=== PATIENT | female | born 1955 | race African-American/Black ===

== ENCOUNTER 2022-07-04 21:59 | Inpatient (IN) | payer OTHER ==
[~2022-07-04] VITALS: Ht 172.7 cm; Wt 74.5 kg
[2022-07-04 23:30] LABS: CHLORIDE 118 mEq/L (98-107)
[2022-07-04 23:38] LABS: ETHANOL BLOOD < 10 mg/dL
[2022-07-04] MEDS ORDERED: LACTULOSE 20G/30ML UDC PO ONE (23:45)
[2022-07-04] MEDS ORDERED: SODIUM CHLORIDE 0.9% 1,000 ML IV ONE (23:45)
[2022-07-04 23:58] LABS: MEAN CORPUSCULAR HEMOGLOBIN 17.9 pg (28.0-32.0); MEAN CORPUSCULAR VOLUME 64.3 fL (81.0-99.0); MEAN PLATELET VOLUME 8.2 fl (7.4-10.4); PLATELET 322 x1000/uL (130-400); RED BLOOD CELL COUNT 2.18 mill/uL (4.2-5.4); RED CELL DISTRIBUTION WIDTH 25.8 % (11.6-14.6)
[2022-07-05 00:05] LABS: HEMOGLOBIN. 3.9 g/dL (12.0-16.0)
[2022-07-05] MEDS ORDERED: LACTULOSE 300 ML in WATER FOR IRRIGATION,STERILE 700 ML IR ONE (00:30)
[2022-07-05] MEDS ORDERED: CALCIUM GLUCONATE 100MG/ML 10ML VIAL IV NR (00:45)
[2022-07-05] MEDS ORDERED: GUAIFENESIN 200MG/10ML SUGAR FREE UDC PO PRN (01:00)
[2022-07-05] MEDS ORDERED: HYDROCODONE/ACETAMINOPHEN 5/325MG TABLET PO PRN (01:00)
[2022-07-05] MEDS: SODIUM CHLORIDE 0.45% 1,000 ML IV SCH ×3 (01:00→22:17)
[2022-07-05] MEDS ORDERED: IPRATROPIUM/ALBUTEROL 0.5-3(2.5)MG/3ML NEB NEB PRN (01:00)
[2022-07-05] MEDS ORDERED: ONDANSETRON HCL 4MG/2ML INJ IV PRN (01:00)
[2022-07-05] MEDS ORDERED: MAGNESIUM/ALUMINUM HYDROXIDE/SIMETHICONE 30ML UDC PO PRN (01:00)
[2022-07-05] MEDS ORDERED: CLONIDINE 0.1MG TABLET PO PRN (01:00)
[2022-07-05] MEDS ORDERED: ACETAMINOPHEN 325MG TABLET PO PRN ×2 (01:00)
[2022-07-05] MEDS ORDERED: ENOXAPARIN 40MG/0.4ML SYR SUBCUT SCH (01:00)
[2022-07-05 02:40] LABS: CLARITY URINE CLEAR (CLEAR); COLOR URINE YELLOW (YELLOW); KETONES URINE TRACE (NEGATIVE); LEUKOCYTE ESTERASE URINE 2+ (NEGATIVE); NITRITE URINE POSITIVE (NEGATIVE); OCCULT BLOOD URINE NEGATIVE (NEGATIVE); PH URINE 5.5 (4.5-8.0); PROTEIN URINE TRACE (NEGATIVE); SPECIFIC GRAVITY URINE 1.032 (1.005-1.030)
[2022-07-05 02:54] LABS: *AMPHETAMINES SCREEN URINE NEGATIVE (NEGATIVE); *BARBITURATES SCREEN URINE NEGATIVE (NEGATIVE); *BENZODIAZEPINES SCREEN URINE NEGATIVE (NEGATIVE); *COCAINE SCREEN URINE NEGATIVE (NEGATIVE); CANNABINOID URINE SCREEN NEGATIVE (NEGATIVE); METHADONE URINE SCREEN NEGATIVE (NEGATIVE); OPIATES URINE SCREEN NEGATIVE (NEGATIVE); PHENCYCLIDINE URINE SCREEN NEGATIVE (NEGATIVE)
[2022-07-05] MEDS ORDERED: MIDAZOLAM HCL 2 MG/2 ML VIAL IV PRN (03:00)
[2022-07-05 03:48] LABS: PLATELET ESTIMATE NORMAL
[2022-07-05 04:42] LABS: HEMATOCRIT. 21.8 % (36.0-48.0); MEAN CORPUSCULAR HEMOGLOBIN 21.6 pg (28.0-32.0); MEAN CORPUSCULAR VOLUME 76.4 fL (81.0-99.0); MEAN PLATELET VOLUME 8.5 fl (7.4-10.4); PLATELET 264 x1000/uL (130-400); RED BLOOD CELL COUNT 2.85 mill/uL (4.2-5.4); RED CELL DISTRIBUTION WIDTH 30.5 % (11.6-14.6)
[2022-07-05 04:51] LABS: CHLORIDE 123 mEq/L (98-107)
[2022-07-05 04:58] LABS: PHOSPHORUS 4.6 mg/dL (2.5-4.9)
[2022-07-05 05:05] LABS: HEMOGLOBIN. 6.2 g/dL (12.0-16.0)
[2022-07-05 05:22] LABS: NUCLEATED RED BLOOD CELLS 3 /100 WBC
[2022-07-05 05:23] LABS: PLATELET ESTIMATE NORMAL
[2022-07-05] MEDS ORDERED: IOHEXOL-350 100 ML BOTTLE ONE (07:16)
[2022-07-05] MEDS: THIAMINE HCL 100MG TABLET PO SCH (09:30)
[2022-07-05 15:06] LABS: FOLIC ACID (FOLATE) SERUM 6.3 ng/mL (>5.38)
[2022-07-05] MEDS: IRON SUCROSE COMPLEX 100 MG/5 ML ML IV SCH (15:51)
[2022-07-05] MEDS: AMLODIPINE 5MG TABLET PO SCH (15:55)
[2022-07-05] MEDS ORDERED: FOLIC ACID 1 MG, THIAMINE HCL 100 MG, MVI, ADULT NO.1 10 ML in DEXTROSE 5% WATER 1,000 ML IV ONE ×4 (17:00)
[2022-07-05] MEDS ORDERED: CEFTRIAXONE 1 G PREMIX 50 ML IV SCH (17:45)
[2022-07-05 21:15] VITALS: BP 156/85
[2022-07-05] MEDS ORDERED: TRAZ-252 PO (23:36)
[2022-07-05] MEDS ORDERED: LISI20TA31 PO (23:36)
[2022-07-05] MEDS ORDERED: OMEP20CA14 PO (23:36)
[2022-07-05] MEDS ORDERED: ATOR10TA69 PO (23:36)
[2022-07-06] VITALS (11 sets, daily range): BP systolic 114–144; BP diastolic 62–80
[2022-07-06] MEDS: SODIUM CHLORIDE 0.45% 1,000 ML IV SCH ×2 (07:00→17:00)
[2022-07-06 07:25] LABS: HEMATOCRIT 23.6 % (36.0-48.0); HEMOGLOBIN 7.3 g/dL (12.0-16.0); MEAN CORPUSCULAR HEMOGLOBIN 22.8 pg (28.0-32.0); MEAN CORPUSCULAR VOLUME 73.5 fL (81.0-99.0); PLATELET 180 x1000/uL (130-400); RED BLOOD CELL COUNT 3.21 mill/uL (4.2-5.4); RED CELL DISTRIBUTION WIDTH 29.4 % (11.6-14.6)
[2022-07-06 07:46] LABS: CHLORIDE 114 mEq/L (98-107)
[2022-07-06] MEDS: THIAMINE HCL 100MG TABLET PO SCH (08:51)
[2022-07-06] MEDS: AMLODIPINE 5MG TABLET PO SCH (08:52)
[2022-07-06] MEDS: PANTOPRAZOLE SODIUM 40 MG/VIAL IV SCH (08:52)
[2022-07-06] MEDS: IRON SUCROSE COMPLEX 100 MG/5 ML ML IV SCH (15:07)
[2022-07-06] MEDS ORDERED: POTASSIUM CHLORIDE 20MEQ TABLET SR PO NR (16:00)
[2022-07-06] MEDS ORDERED: NALOXONE HCL 0.4MG/ML VIAL IV PRN (18:45)
[2022-07-06] MEDS: CEFTRIAXONE 1,000 MG in DEXTROSE 5% WATER 50 ML IV SCH (21:30)
[2022-07-07] VITALS: BP 121/68
[2022-07-07] MEDS: SODIUM CHLORIDE 0.45% 1,000 ML IV SCH ×2 (03:44→13:17)
[2022-07-07 04:00] VITALS: BP 131/73
[2022-07-07 07:23] LABS: CHLORIDE 111 mEq/L (98-107)
[2022-07-07 07:24] LABS: BASOPHILS % 0.5 % (0.0-2.0); HEMATOCRIT. 24.6 % (36.0-48.0); LYMPHOCYTES % 26.7 % (20.0-50.0); MEAN CORPUSCULAR HEMOGLOBIN 23.7 pg (28.0-32.0); MEAN CORPUSCULAR VOLUME 76.4 fL (81.0-99.0); MEAN PLATELET VOLUME 8.6 fl (7.4-10.4); MONOCYTES % 8.1 % (2.0-8.0); NEUTROPHILS % 62.7 % (40.0-76.0); PLATELET 156 x1000/uL (130-400); RED BLOOD CELL COUNT 3.22 mill/uL (4.2-5.4); RED CELL DISTRIBUTION WIDTH 30.2 % (11.6-14.6)
[2022-07-07 07:30] LABS: HEMOGLOBIN. 7.6 g/dL (12.0-16.0)
[2022-07-07 08:00] VITALS: BP 136/76
[2022-07-07] MEDS: PANTOPRAZOLE SODIUM 40 MG/VIAL IV SCH (08:57)
[2022-07-07] MEDS: THIAMINE HCL 100MG TABLET PO SCH (08:57)
[2022-07-07] MEDS: AMLODIPINE 5MG TABLET PO SCH (08:57)
[2022-07-07] MEDS ORDERED: POTASSIUM CHLORIDE 20MEQ TABLET SR PO SCH (10:00)
[2022-07-07 12:00] VITALS: BP 130/76
[2022-07-07] MEDS ORDERED: NA PHOS,M-B/NA PHOS,DI-BA ENEMA 118ML PR PRN (13:00)
[2022-07-07] MEDS ORDERED: MAGNESIUM HYDROXIDE 400MG/5ML 30ML UDC PO PRN (13:00)
[2022-07-07] MEDS: POLYETHYLENE GLYCOL 3350 (17GM) 1 DOSE PACK PO SCH (14:42)
[2022-07-07] MEDS: IRON SUCROSE COMPLEX 100 MG/5 ML ML IV SCH (14:43)
[2022-07-07 16:00] VITALS: BP 120/65
[2022-07-07] MEDS: SORBITOL 70% SOLN 30ML PO SCH ×2 (18:46→21:30)
[2022-07-07] MEDS: BISACODYL 5MG TABLET PO SCH ×2 (18:48→21:29)
[2022-07-07] MEDS: METOCLOPRAMIDE HCL 10MG/2ML VIAL IV SCH ×2 (18:48→21:33)
[2022-07-07 20:00] VITALS: BP 149/76
[2022-07-07] MEDS: CEFTRIAXONE 1,000 MG in DEXTROSE 5% WATER 50 ML IV SCH (21:29)
[2022-07-07 23:18] LABS: HEMATOCRIT 32.1 % (36.0-48.0); HEMOGLOBIN 9.7 g/dL (12.0-16.0)
[2022-07-08] VITALS: BP 115/64
[2022-07-08] MEDS: METOCLOPRAMIDE HCL 10MG/2ML VIAL IV SCH ×3 (02:04→10:18)
[2022-07-08] MEDS: SORBITOL 70% SOLN 30ML PO SCH ×3 (02:04→10:00)
[2022-07-08] MEDS: BISACODYL 5MG TABLET PO SCH ×3 (02:04→10:00)
[2022-07-08] MEDS: SODIUM CHLORIDE 0.45% 1,000 ML IV SCH ×3 (02:50→21:54)
[2022-07-08 03:20] LABS: HEMATOCRIT. 30.1 % (36.0-48.0); HEMOGLOBIN. 9.4 g/dL (12.0-16.0); MEAN CORPUSCULAR HEMOGLOBIN 23.6 pg (28.0-32.0); MEAN CORPUSCULAR VOLUME 75.9 fL (81.0-99.0); MEAN PLATELET VOLUME 8.5 fl (7.4-10.4); PLATELET 176 x1000/uL (130-400); RED BLOOD CELL COUNT 3.97 mill/uL (4.2-5.4); RED CELL DISTRIBUTION WIDTH 30.5 % (11.6-14.6)
[2022-07-08 03:30] LABS: INR 1.2; PROTHROMBIN TIME 12.5 sec (9.6-11.0)
[2022-07-08 03:43] LABS: CHLORIDE 114 mEq/L (98-107)
[2022-07-08 04:00] VITALS: BP 140/83
[2022-07-08 06:01] LABS: NUCLEATED RED BLOOD CELLS 7 /100 WBC; PLATELET ESTIMATE NORMAL
[2022-07-08] MEDS ORDERED: POTASSIUM CHLORIDE 20MEQ TABLET SR PO NR (07:45)
[2022-07-08 08:00] VITALS: BP 133/80
[2022-07-08] MEDS: PANTOPRAZOLE SODIUM 40 MG/VIAL IV SCH (08:43)
[2022-07-08] MEDS: POLYETHYLENE GLYCOL 3350 (17GM) 1 DOSE PACK PO SCH (08:43)
[2022-07-08] MEDS: THIAMINE HCL 100MG TABLET PO SCH (08:44)
[2022-07-08] MEDS: AMLODIPINE 5MG TABLET PO SCH (08:44)
[2022-07-08 12:00] VITALS: BP 129/80
[2022-07-08] MEDS ORDERED: PROPOFOL 200MG/20ML VIAL IV ONE ×3 (15:48→16:44)
[2022-07-08] MEDS ORDERED: ONDANSETRON HCL 4MG/2ML INJ ONE (15:49)
[2022-07-08] MEDS ORDERED: DEXAMETHASONE 4MG/ML 1ML VIAL ONE (15:49)
[2022-07-08] MEDS ORDERED: MIDAZOLAM HCL 2 MG/2 ML VIAL ONE (15:57)
[2022-07-08] MEDS ORDERED: FENTANYL CITRATE/PF 50MCG/ML 2ML VIAL ONE (15:58)
[2022-07-08 18:00] VITALS: BP 155/87
[2022-07-08 20:00] VITALS: BP 118/64
[2022-07-08] MEDS: CEFTRIAXONE 1,000 MG in DEXTROSE 5% WATER 50 ML IV SCH (21:53)
[2022-07-09] VITALS: BP 122/72
[2022-07-09 04:00] VITALS: BP 132/82
[2022-07-09] MEDS: SODIUM CHLORIDE 0.45% 1,000 ML IV SCH (05:25)
[2022-07-09 06:35] LABS: CHLORIDE 112 mEq/L (98-107)
[2022-07-09 06:40] LABS: PHOSPHORUS 2.8 mg/dL (2.5-4.9)
[2022-07-09 07:14] LABS: HEMATOCRIT. 25.4 % (36.0-48.0); HEMOGLOBIN. 8.1 g/dL (12.0-16.0); MEAN CORPUSCULAR HEMOGLOBIN 24.6 pg (28.0-32.0); MEAN CORPUSCULAR VOLUME 77.3 fL (81.0-99.0); MEAN PLATELET VOLUME 8.6 fl (7.4-10.4); PLATELET 124 x1000/uL (130-400); RED BLOOD CELL COUNT 3.29 mill/uL (4.2-5.4); RED CELL DISTRIBUTION WIDTH 31.1 % (11.6-14.6)
[2022-07-09 08:00] VITALS: BP 125/65
[2022-07-09] MEDS: POLYETHYLENE GLYCOL 3350 (17GM) 1 DOSE PACK PO SCH (09:00)
[2022-07-09] MEDS: THIAMINE HCL 100MG TABLET PO SCH (09:06)
[2022-07-09] MEDS: PANTOPRAZOLE SODIUM 40 MG/VIAL IV SCH (09:06)
[2022-07-09] MEDS: AMLODIPINE 5MG TABLET PO SCH (09:06)
[2022-07-09 12:00] VITALS: BP 113/61
[2022-07-09] MEDS ORDERED: WHEA144P PO (15:09)
[2022-07-09] MEDS ORDERED: MOM PO (15:09)
[2022-07-09 16:00] VITALS: BP 112/61
[2022-07-09 16:42] VITALS: BP 132/72
[2022-07-09 22:42] LABS: PLATELET ESTIMATE DECREASED
== END 2022-07-09 18:00 | disposition home or self-care (01) | DRG 871 ==
LOC: ER 21:59 → 7EST 07-05 00:10 → SUPCPDRO 07-05 00:45 → EDBEDREQSVC 07-05 08:28 → ENRESERV 07-05 21:51
PROVIDERS: ADMIT Internal Medicine; ATTEND Internal Medicine
PROC: 30233N1 Transfusion of Nonautologous Red Blood Cells into Peripheral Vein, Percutaneous Approach (ICD-10-PCS; principal; 2022-07-05)
PROC: 0DB68ZX Excision of Stomach, Via Natural or Artificial Opening Endoscopic, Diagnostic (ICD-10-PCS; 2022-07-08)
PROC: 0DJD8ZZ Inspection of Lower Intestinal Tract, Via Natural or Artificial Opening Endoscopic (ICD-10-PCS; 2022-07-08)
DX: A41.51 Sepsis due to Escherichia coli [E. coli] (principal); G93.41 Metabolic encephalopathy; E44.1 Mild protein-calorie malnutrition; E87.0 Hyperosmolality and hypernatremia; E72.20 Disorder of urea cycle metabolism, unspecified; N39.0 Urinary tract infection, site not specified; N17.9 Acute kidney failure, unspecified; E87.1 Hypo-osmolality and hyponatremia; M48.55XA Collapsed vertebra, not elsewhere classified, thoracolumbar region, initial encounter for fracture; K92.1 Melena; D50.9 Iron deficiency anemia, unspecified; D25.9 Leiomyoma of uterus, unspecified; K43.9 Ventral hernia without obstruction or gangrene; Z20.822 Contact with and (suspected) exposure to COVID-19; K29.70 Gastritis, unspecified, without bleeding; K57.90 Diverticulosis of intestine, part unspecified, without perforation or abscess without bleeding; K76.0 Fatty (change of) liver, not elsewhere classified; M16.0 Bilateral primary osteoarthritis of hip; R73.9 Hyperglycemia, unspecified; I10 Essential (primary) hypertension; K59.00 Constipation, unspecified; E78.5 Hyperlipidemia, unspecified; K21.9 Gastro-esophageal reflux disease without esophagitis; R74.01 Elevation of levels of liver transaminase levels; R77.8 Other specified abnormalities of plasma proteins; F10.20 Alcohol dependence, uncomplicated; F41.9 Anxiety disorder, unspecified; Z68.25 Body mass index [BMI] 25.0-25.9, adult
CPT/HCPCS: 36415; 36430; 70496; 70498; 71045; 74176; 80048; 80053; 80061; 80305; 80320; 81003; 82140; 82378; 82607; 82728; 82746; 83540; 83550; 83735; 84100; 84145; 84484; 85014; 85018; 85025; 85027; 86850; 86900; 86920; 87077; 87186; 87426; 88305; 88312; 88313; 93005; 93306; 99291; C9113; J0610; J0696; J1100; J2250; J2405; J2704; J2765; J3010; J3411; J3490; J7060; J7070; P9016; Q9967; A4315; G0480